=== PATIENT | male | born 1995 | race Caucasian/White ===

== ENCOUNTER 2017-02-13 15:48 | Inpatient (IN) | payer OTHER ==
[2017-02-13] MEDS ORDERED: ACETAMINOPHEN 500 MG TAB PO ONE (16:00)
[2017-02-13] MEDS ORDERED: ACETAMINOPHEN 500 MG TAB ONE (16:03)
[2017-02-13 16:09] LABS: COLOR YELLOW; LEUKOCYTE ESTERASE,URINE NEGATIVE (NEGATIVE); NITRITE,URINE NEGATIVE (NEGATIVE)
[2017-02-13 16:12] LABS: MUCUS 1+ /lpf (NONE-1+)
[2017-02-13] MEDS ORDERED: NS 2,100 ML IV ONE (16:12)
--- NOTE | 2017-02-13 16:12 | EDPHY ---
H & P Stated Complaint: fever,abd pain r bk pain diarrhea red chunky x 5 d, hx chrons Time Seen by Provider: 02/13/17 15:58 HPI/ROS: CHIEF COMPLAINT: Abdominal pain, fever, diarrhea HISTORY OF PRESENT ILLNESS: 21-year-old male with his multiyear history of diagnosed Crohn's disease on mercaptopurine, arrives via private vehicle complaining of 3 days of diffuse abdominal pain, nausea with no vomiting, diarrhea which is nonbloody non purulent, subjective fever. No myalgias.. Pain radiates to his right testicle into his right flank. Testicle itself is nontender and he has no urinary complaints. He denies history of abdominal or genital trauma. He has no local primary care provider or lead sprinkler. Moved here from [place] 1 year ago Last oral intake was at noon today consisting of 2 bites of a sandwich. PRIMARY CARE PROVIDER:none locally REVIEW OF SYSTEMS: A ten point review of systems was performed and is negative with the exception of the items mentioned in the HPI PAST MEDICAL & SURGICAL HISTORY: Crohn's disease, no history of abdominal surgeries, on mercaptopurine. SOCIAL HISTORY:nonsmoker no drug use. Moved here 1 year ago. PHYSICAL EXAM (Prior to examination, patient consented to physical exam, hands were washed and my usual and customary physical exam procedures followed) 1) GENERAL: Well-developed, well-nourished, alert and oriented. Appears nontoxic answering questions appropriately . 2) HEAD: Normocephalic, atraumatic 3) HEENT: Pupils equal, round, reactive to light bilaterally. Sclera anicteric. Nasopharynx, oropharynx, clear, no lesions. Dry mucous membranes 4) NECK: Full range of motion, no meningeal signs. 5) LUNGS: Clear auscultation bilaterally, no wheezes, no rhonchi, no retractions. 6) HEART: Regular rate and rhythm, no murmur, no heave, no gallop. 7) ABDOMEN: flat, tender to palpation all quadrants. No guarding, no rebound, no focal tenderness, negative McBurney's, negative Vivar's, negative Rovsing's , negative peritoneal sign, 8) MUSCULOSKELETAL: Moving all extremities, no focal areas of tenderness, no obvious trauma. No peripheral edema or discoloration. 9) BACK: No CVA tenderness, no midline vertebral tenderness, no fluctuance, no step-off, no obvious trauma, no visual or palpable abnormality. 10) SKIN: No rash, no petechiae. 11) : Normal male external genitalia, bilateral testicles are nontender with positive cremasteric reflex bilaterally, no high-riding testicle. . DIFFERENTIAL DIAGNOSIS: My differential diagnosis includes, but is not limited to, acute appendicitis, acute cholecystitis, bowel obstruction, acute pancreatitis, [testicular torsion, intra-abdominal abscess, gastritis and urinary tract infection. The patient understands that this diagnosis is provisional and can never be 100% accurate. This is a partial list of diagnoses considered. These considerations are based on history, physical exam, past history and reassessment. - Personal History Current Tetanus/Diphtheria Vaccine: Unsure Current Tetanus Diphtheria and Acellular Pertussis (TDAP): Unsure - Medical/Surgical History Hx Asthma: No Hx Chronic Respiratory Disease: No Hx Diabetes: No Hx Cardiac Disease: No Hx Renal Disease: No Hx Cirrhosis: No Hx Alcoholism: No Hx HIV/AIDS: No Hx Splenectomy or Spleen Trauma: No Other PMH: chrons - Social History Smoking Status: Never smoked Constitutional: Initial Vital Signs Temperature (C) 38.8 C H 02/13/17 15:51 Heart Rate 111 H 02/13/17 15:51 Respiratory Rate 16 02/13/17 15:51 Blood Pressure 138/67 H 02/13/17 15:51 O2 Sat (%) 98 02/13/17 15:51 O2 Delivery Mode Room Air Allergies/Adverse Reactions: No Known Allergies Allergy (Unverified 02/13/17 15:54) Home Medications: Medication Instructions Recorded Unobtainable 02/13/17 Medical Decision Making - Diagnostics Imaging Results: Imaging Impressions Abdomen CT 02/13/17 16:16 Impression: Possible ruptured appendicitis causing right ureteral obstruction vs appendix Crohn's disease. Results called and discussed with Cooper Navarro at 02/13/2017 17:02 General information for patients regarding this examination can be found at [email or web address]. If you have questions or comments about this report, please contact me at [phone] (hospital) or [phone] (cell). ED Course/Re-evaluation: I discussed this case with Dr. Zayas had received a phone call from [facility]. Plan will be laboratory studies, CT imaging. 5:10 p.m.: Discussed the imaging results showing a possible appendiceal perforation. Plan will be IV Invanz and surgical consultation 5:17 p.m.: Phone consultation with Dr. Marques Ruiz who will evaluate patient emergency - Data Points Laboratory Results: Laboratory Results 02/13/17 16:10 02/13/17 16:10 02/13/17 02/13/17 02/13/17 16:10 16:10 16:10 WBC RBC Hgb POC Hgb Hct POC Hct MCV MCH MCHC RDW Plt Count MPV Neut % (Auto) Lymph % (Auto) Upson % (Auto) Eos % (Auto) Baso % (Auto) Nucleat RBC Rel Count Absolute Neuts (auto) Absolute Lymphs (auto) Absolute Monos (auto) Absolute Eos (auto) Absolute Basos (auto) Absolute Nucleated RBC Immature Gran % Immature Gran # PT 15.3 SEC H SEC (12.0-15.0) INR 1.21 H (0.83-1.16) APTT 29.7 SEC SEC (23.0-38.0) VBG Lactic Acid 1.0 mmol/L mmol/L (0.7-2.1) POC Sodium Sodium 136 mEq/L mEq/L (134-144) POC Potassium Potassium 4.1 mEq/L mEq/L (3.5-5.2) POC Chloride Chloride 96 mEq/L L mEq/L (97-110) Carbon Dioxide 21 mEq/l L mEq/l (22-31) Anion Gap 19 mEq/L H mEq/L (8-16) POC BUN BUN 18 mg/dL mg/dL (7-23) Creatinine 0.9 mg/dL mg/dL (0.7-1.3) POC Creatinine Estimated GFR > 60 Glucose 92 mg/dL mg/dL (70-100) POC Glucose Calcium 10.0 mg/dL mg/dL (8.5-10.4) Total Bilirubin 1.7 mg/dL H mg/dL (0.1-1.4) Conjugated Bilirubin 0.4 mg/dL mg/dL (0.0-0.5) Unconjugated Bilirubin 1.3 mg/dL H mg/dL (0.0-1.1) AST 23 IU/L IU/L (17-59) ALT 22 IU/L IU/L (21-72) Alkaline Phosphatase 95 IU/L IU/L (38-126) Total Protein 8.2 g/dL g/dL (6.3-8.2) Albumin 4.7 g/dL g/dL (3.5-5.0) Lipase 53.0 IU/L IU/L (23-300) Urine Color Urine Appearance Urine pH Ur Specific Pineola Urine Protein Urine Ketones Urine Blood Urine Nitrate Urine Bilirubin Urine Urobilinogen Ur Leukocyte Esterase Urine RBC Urine WBC Ur Epithelial Cells Urine Mucus Urine Glucose 02/13/17 02/13/17 02/13/17 16:10 16:09 16:00 WBC 9.36 10^3/uL 10^3/uL (3.80-9.50) RBC 4.83 10^6/uL 10^6/uL (4.40-6.38) Hgb 15.1 g/dL g/dL (13.7-17.5) POC Hgb 15.0 gm/dL gm/dL (13.7-17.5) Hct 43.2 % % (40.0-51.0) POC Hct 44 % % (40-51) MCV 89.4 fL fL (81.5-99.8) MCH 31.3 pg pg (27.9-34.1) MCHC 35.0 g/dL g/dL (32.4-36.7) RDW 11.6 % % (11.5-15.2) Plt Count 275 10^3/uL 10^3/uL (150-400) MPV 9.4 fL fL (8.7-11.7) Neut % (Auto) 93.4 % H % (39.3-74.2) Lymph % (Auto) 1.4 % L % (15.0-45.0) Upson % (Auto) 4.7 % % (4.5-13.0) Eos % (Auto) 0.1 % L % (0.6-7.6) Baso % (Auto) 0.2 % L % (0.3-1.7) Nucleat RBC Rel Count 0.0 % % (0.0-0.2) Absolute Neuts (auto) 8.74 10^3/uL H 10^3/uL (1.70-6.50) Absolute Lymphs (auto) 0.13 10^3/uL L 10^3/uL (1.00-3.00) Absolute Monos (auto) 0.44 10^3/uL 10^3/uL (0.30-0.80) Absolute Eos (auto) 0.01 10^3/uL L 10^3/uL (0.03-0.40) Absolute Basos (auto) 0.02 10^3/uL 10^3/uL (0.02-0.10) Absolute Nucleated RBC 0.00 10^3/uL 10^3/uL (0-0.01) Immature Gran % 0.2 % % (0.0-1.1) Immature Gran # 0.02 10^3/uL 10^3/uL (0.00-0.10) PT INR APTT VBG Lactic Acid POC Sodium 135 mEq/L mEq/L (134-144) Sodium POC Potassium 3.8 mEq/L mEq/L (3.3-5.0) Potassium POC Chloride 97 mEq/L mEq/L (97-110) Chloride Carbon Dioxide Anion Gap POC BUN 18 mg/dL mg/dL (7-23) BUN Creatinine POC Creatinine 0.9 mg/dL mg/dL (0.7-1.3) Estimated GFR Glucose POC Glucose 93 mg/dL mg/dL (70-100) Calcium Total Bilirubin Conjugated Bilirubin Unconjugated Bilirubin AST ALT Alkaline Phosphatase Total Protein Albumin Lipase Urine Color YELLOW Urine Appearance HAZY Urine pH 5.0 (5.0-7.5) Ur Specific [place] 1.030 (1.002-1.030) Urine Protein 2+ H (NEGATIVE) Urine Ketones NEGATIVE (NEGATIVE) Urine Blood NEGATIVE (NEGATIVE) Urine Nitrate NEGATIVE (NEGATIVE) Urine Bilirubin NEGATIVE (NEGATIVE) Urine Urobilinogen NEGATIVE EU EU (0.2-1.0) Ur Leukocyte Esterase NEGATIVE (NEGATIVE) Urine RBC 1-3 /hpf /hpf (0-3) Urine WBC 1-3 /hpf /hpf (0-3) Ur Epithelial Cells NONE SEEN /lpf /lpf (NONE-1+) Urine Mucus 1+ /lpf /lpf (NONE-1+) Urine Glucose NEGATIVE (NEGATIVE) Medications Given: Discontinued Medications Acetaminophen (Tylenol) 1,000 mg PO EDNOW ONE Stop: 02/13/17 16:01 Last Admin: 02/13/17 16:00 Dose: 1,000 mg Sodium Chloride (Ns) 2,100 mls @ 4,200 mls/hr 30 ml/kg infuse over 30 min ( 2100 ml) IV EDNOW ONE PRN Reason: Protocol Stop: 02/13/17 16:41 Last Admin: 02/13/17 16:12 Dose: 2,100 mls Ertapenem 1 gm/ Sodium (Chloride) 100 mls @ 200 mls/hr IV EDNOW ONE PRN Reason: Protocol Stop: 02/13/17 17:46 Last Admin: 02/13/17 17:50 Dose: 100 mls Point of Care Test Results: 02/13/17 16:09 POC Sodium 135 POC Potassium 3.8 POC Chloride 97 POC BUN 18 POC Creatinine 0.9 POC Glucose 93 Departure - Departure Disposition: [facility] Inpatient Acute Clinical Impression: Perforated appendicitis Abdominal pain Qualifiers: Abdominal location: right lower quadrant Qualified Code(s): R10.31 - Right lower quadrant pain Condition: Fair
[2017-02-13 16:19] LABS: % IMMATURE GRANULYOCYTES 0.2 % (0.0-1.1); ABSOLUTE IMMATURE GRANULOCYTES 0.02 10^3/uL (0.00-0.10); ADD DIFF? NO; ADD MORPH? NO; ADD SCAN? NO; ATYPICAL LYMPHOCYTE FLAG 0 (0-99); FRAGMENT RBC FLAG 0 (0-99); HEMATOCRIT 43.2 % (40.0-51.0); HEMOGLOBIN 15.1 g/dL (13.7-17.5); LEFT SHIFT FLG 60 (0-99); LIPEMIA HEMOLYSIS FLAG 90 (0-99); MEAN CELL HEMOGLOBIN 31.3 pg (27.9-34.1); MEAN CELL VOLUME 89.4 fL (81.5-99.8); MEAN PLATELET VOLUME 9.4 fL (8.7-11.7); PLATELET CLUMPS FLAG 0 (0-99); PLATELET COUNT 275 10^3/uL (150-400); RED BLOOD CELL COUNT 4.83 10^6/uL (4.40-6.38); RED CELL DISTRIBUTION WIDTH 11.6 % (11.5-15.2)
[2017-02-13 16:30] LABS: INR 1.21 (0.83-1.16); PROTIME(PATIENT) 15.3 SEC (12.0-15.0)
[2017-02-13 16:31] LABS: APTT 29.7 SEC (23.0-38.0)
[2017-02-13 16:35] LABS: ALANINE AMINOTRANSFERASE 22 IU/L (21-72); ALBUMIN 4.7 g/dL (3.5-5.0); ALKALINE PHOSPHATASE 95 IU/L (38-126); ANION GAP 19 mEq/L (8-16); ASPARTATE AMINOTRANSFERASE 23 IU/L (17-59); BILIRUBIN,TOTAL 1.7 mg/dL (0.1-1.4); BILIRUBIN-CONJUGATED 0.4 mg/dL (0.0-0.5); BILIRUBIN-UNCONJUGATED 1.3 mg/dL (0.0-1.1); CARBON DIOXIDE 21 mEq/l (22-31); CHLORIDE 96 mEq/L (97-110); CREATININE 0.9 mg/dL (0.7-1.3); GLOMERULAR FILTRATION RATE > 60; GLUCOSE 92 mg/dL (70-100); POTASSIUM 4.1 mEq/L (3.5-5.2); SODIUM 136 mEq/L (134-144); TOTAL PROTEIN 8.2 g/dL (6.3-8.2)
[2017-02-13] MEDS ORDERED: IOPAMIDOL (ISOVUE-300) 100 ML BTL ONE (16:35)
[2017-02-13] MEDS ORDERED: ERTAPENEM 1 GM in NS 100 ML IV ONE (17:17)
[2017-02-13] MEDS ORDERED: NS 1,000 ML IV ONE (18:46)
[2017-02-13] MEDS ORDERED: HEPARIN 5,000 UNIT/0.5 ML SYR ONE (19:16)
[2017-02-13] MEDS ORDERED: ceFAZolin 1 GM/5 ML SYR ONE (19:17)
[2017-02-13] MEDS ORDERED: MIDAZOLAM 2 MG/2 ML VIAL ONE (19:34)
[2017-02-13] MEDS ORDERED: fentaNYL 100 MCG/2 ML INJ ONE ×4 (19:37→22:57)
[2017-02-13] MEDS ORDERED: PROPOFOL 200 MG/20 ML VIAL ONE (19:37)
[2017-02-13] MEDS ORDERED: DEXAMETHASONE 4 MG/ML VIAL ONE ×2 (19:39)
[2017-02-13] MEDS ORDERED: ROCURONIUM 50 MG/5 ML VIAL ONE ×2 (19:39→20:46)
[2017-02-13] MEDS ORDERED: LIDOCAINE 2% 5 ML SDV ONE (19:39)
[2017-02-13] MEDS ORDERED: ONDANSETRON 4 MG/2 ML VIAL ONE (19:39)
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
[2017-02-13] MEDS ORDERED: KETOROLAC 30 MG/1 ML SDV ONE (20:12)
[2017-02-13] MEDS ORDERED: KETAMINE 100 MG/10 ML SYR ONE (20:57)
[2017-02-13] MEDS ORDERED: SUGAMMADEX SODIUM 200 MG/2 ML VIAL IVP ONE (22:09)
[2017-02-13] MEDS ORDERED: HYDROmorphONE/DILAUDID 1 MG/ML SYR ONE (22:57)
--- NOTE | 2017-02-13 23:19 | POSTOPPROG ---
Post Op Note Date of Operation: 02/13/17 Surgeon: Marques Ruiz Anesthesia: GET(General Endotracheal) Pre-op Diagnosis: Acute abdomen,probable appendicitis, Crohn's disease, R hydronephrosis/uret Post-op Diagnosis: Ruptured appendicitis, generalized peritonitis, mesenteric adenitis Indication: Acute abdomen Procedure: lap/open appendectomy Findings: Ruptured appendicitis, generalized peritonitis, mesenteric adenitis Inf/Abcess present in the surg proc area at time of surgery?: Yes Depth: Organ Space EBL: Minimal Total fluids administered: 1800 Complications: none Drains: Vincent Cotton (placed in pelvis)
[2017-02-13] MEDS ORDERED: ONDANSETRON 4 MG/2 ML VIAL IVP PRN (23:30)
[2017-02-13] MEDS ORDERED: HYDROmorphONE/DILAUDID 1 MG/ML SYR IVP PRN (23:30)
[2017-02-14] MEDS: LR 1,000 ML IV SCH ×2 (00:14→17:58)
[2017-02-14] MEDS: KETOROLAC 30 MG/1 ML SDV IVP SCH ×4 (00:14→18:48)
[2017-02-14] MEDS: ACETAMINOPHEN 500 MG TAB PO SCH ×3 (05:18→22:15)
[2017-02-14 05:27] LABS: ALANINE AMINOTRANSFERASE 23 IU/L (21-72); ALBUMIN 3.2 g/dL (3.5-5.0); ALKALINE PHOSPHATASE 67 IU/L (38-126); ANION GAP 12 mEq/L (8-16); ASPARTATE AMINOTRANSFERASE 19 IU/L (17-59); BILIRUBIN,TOTAL 1.1 mg/dL (0.1-1.4); CALCIUM 8.8 mg/dL (8.5-10.4); CARBON DIOXIDE 23 mEq/l (22-31); CHLORIDE 103 mEq/L (97-110); CREATININE 0.7 mg/dL (0.7-1.3); GLOMERULAR FILTRATION RATE > 60; GLUCOSE 139 mg/dL (70-100); POTASSIUM 5.2 mEq/L (3.5-5.2); SODIUM 138 mEq/L (134-144); TOTAL PROTEIN 5.8 g/dL (6.3-8.2)
[2017-02-14 05:32] LABS: % IMMATURE GRANULYOCYTES 0.6 % (0.0-1.1); ABSOLUTE IMMATURE GRANULOCYTES 0.09 10^3/uL (0.00-0.10); ADD DIFF? NO; ADD MORPH? NO; ADD SCAN? YES; ATYPICAL LYMPHOCYTE FLAG 0 (0-99); FRAGMENT RBC FLAG 0 (0-99); HEMATOCRIT 38.5 % (40.0-51.0); HEMOGLOBIN 13.4 g/dL (13.7-17.5); LIPEMIA HEMOLYSIS FLAG 90 (0-99); MEAN CELL HEMOGLOBIN 31.6 pg (27.9-34.1); MEAN CELL HEMOGLOBIN CONCENTR. 34.8 g/dL (32.4-36.7); MEAN CELL VOLUME 90.8 fL (81.5-99.8); MEAN PLATELET VOLUME 10.1 fL (8.7-11.7); PLATELET CLUMPS FLAG 10 (0-99); PLATELET COUNT 222 10^3/uL (150-400); RED BLOOD CELL COUNT 4.24 10^6/uL (4.40-6.38); RED CELL DISTRIBUTION WIDTH 11.9 % (11.5-15.2)
[2017-02-14 05:44] LABS: LEFT SHIFT FLG 290 (0-99)
--- NOTE | 2017-02-14 06:00 | GOP ---
[f rep st] OPERATIVE REPORT DATE OF OPERATION: SURGEON: Marques Ruiz MD PREOPERATIVE DIAGNOSIS: Acute abdomen probable appendicitis, Crohn's disease, right hydronephrosis and right hydroureter. POSTOPERATIVE DIAGNOSIS: Ruptured appendicitis, generalized peritonitis, mesenteric adenitis, scarring at right pelvis presumably accounting for right hydronephrosis and hydroureter. PROCEDURE PERFORMED: Laparoscopic/open appendectomy. FINDINGS: Ruptured appendicitis, generalized peritonitis, extensive scarring and mesenteric adenitis. ESTIMATED BLOOD LOSS: Minimal INDICATIONS: Acute abdomen. DESCRIPTION OF PROCEDURE: Patient was placed on the operating table in supine position. After induction of adequate general endotracheal anesthesia, he was prepped and draped. A surgical time-out was carried out and agreed to by all members of the operative team. He was first approach laparoscopically. A curvilinear incision was made at the umbilicus. Transverse incision was made in the suprapubic area. An oblique incision is made in the left lower quadrant. Dissection was continued down to the anterior rectus sheath. Allis clamps were used to elevate the fascia and it was divided in the midline. Pursestring #0 PDS was placed in the fascia. The Yariel trocar was positioned. The left lower quadrant 5 mm port was placed under direct vision. A 5 mm suprapubic port was placed under direct vision. There were extensive adhesions in the right pelvis. The right colon was mobilized along the white line of Toldt laterally. There was a dense adhesion at the level of the pelvic brim. Small intestine did not have fat wrapping to it. The cecum and the terminal ileum and appendix were draped into the pelvis and densely adherent to the posterior pelvis. It became rapidly obviously it was not going to be safe to perform this procedure laparoscopically because of the dense adhesions. Surgery was converted to open procedure. A Bookwalter and major tray were brought to the scrub table. Laparoscopic instrumentation was removed. A vertical midline incision was made suprapubic to the umbilicus. An extension of the incision to the low hypogastrium was necessary to improve access.. I was able to mobilize the small bowel and slowly, using a Kittner and finger fracture technique, finally separate the appendix from the terminal ileum. The appendix is elevated. The cecum was transected with a linear stapler. The meso appendix was attenuated and divided with the harmonic scalpel. The specimen (appendix and cecal base) was removed. Thick intense scarring is consistent with a process that had been on going for a longer period than 48 hours. Small bowel was carefully inspected throughout its length. I inspected the terminal ilium where the appendix had been directly applied to it. There appears to be no evidence of bowel injury. During the course of the procedure, care was taken to avoid injury to the ureter. A LORNA drain was placed through the left lower quadrant incision into the left pelvis. Note was made on initial laparoscopic entry, a sample of the purulent fluid had been obtained and sent for culture and sensitivity. At this point, 4 L of saline was used to irrigate the abdomen. The midline incision was closed with a running suture of #0 PDS. The subcutaneous tissue, which was minimal, was irrigated. The skin was closed with desmond. The LORNA drain had been secured to the skin level with a 2-0 silk suture. A composite dressing was placed on the midline incision. Two 4x4s were carefully pulled with one below and one over the LORNA drain. A large piece of tape was placed over it. Note is made of Valerio catheter had been passed at the beginning of the surgery. It was left in place. The patient was returned to recovery in stable and satisfactory condition. INFECTION: There was a deep organ space infection with purulent peritonitis. FLUIDS: 1800 cc. COMPLICATIONS: None. DRAINS: Vincent-Cotton drain. /[id number]/MODL MTDD
[2017-02-14 06:21] LABS: SCAN NEGATIVE
--- NOTE | 2017-02-14 10:58 | SOAPPROG ---
SOAP Progress Note Assessment/Plan: 02/14/17 10:50 POD#1 Assessment: WBC up to 14k, LORNA drainage serous, C&S pending, Stool C&S negative, Bilirubin down, No flatus yet, Minimal bowel sounds,Poor effort on IS, OOB walking in [place] Improving. Plan: Will follow up on right hydronephrosis/hydroureter in the next few days. Since ureter not seen at surgery, will check LORNA drainage for Creatinine to prove non-injury Will not feed yet. Plan at least 14 days of antibiotics - awaiting C&S Will need to watch for metastatic infection in liver, recurrent peritoneal infection and wound infection. Subjective: I feel better Objective: Vital Signs Temp Pulse Resp BP Pulse Ox 36.2 C 52 L 16 116/64 96 02/14/17 10:12 02/14/17 10:12 02/14/17 10:12 02/14/17 10:12 02/14/17 10:12 Microbiology 02/13/17 20:22 Gram Stain - Final Appendix - Swab 02/13/17 18:41 Gastrointestinal Tract Panel (PCR) - Final Stool No Organism Detected Laboratory Results 02/14/17 04:15 02/14/17 04:15 02/13/17 02/14/17 02/15/17 05:59 05:59 05:59 Intake Total 4400 Output Total 600 Balance 3800 PT 15.3 SEC (12.0-15.0) H 02/13/17 16:10 INR 1.21 (0.83-1.16) H 02/13/17 16:10 - Time Spent With Patient Time Spent With Patient: 25 minutes Physical Exam - Physical Exam General Appearance: WD/WN, alert, mild distress Neck: non-tender, full range of motion, supple, normal inspection Respiratory: chest non-tender, lungs clear, other (poor respiratory excursion, IS only to 1000cc) Cardiac/Chest: regular rate, rhythm Abdomen: soft, other (hypoactive/minimal BS) Male Genitalia: deferred Rectal: deferred Skin: normal color, warm/dry Lymphatic: no adenopathy Extremities: normal range of motion, non-tender Neuro/Psych: no motor/sensory deficits, alert, normal mood/affect, oriented x 3 ICD10 Worksheet Patient Problems: Problems Problem Status Onset Abdominal pain Acute Perforated appendicitis Acute
[2017-02-14] MEDS: ERTAPENEM 1 GM in NS 100 ML IV SCH (18:16)
[2017-02-14] MEDS: ENOXAPARIN 30 MG/0.3 ML SYR SC SCH (22:16)
[2017-02-15] MEDS: KETOROLAC 30 MG/1 ML SDV IVP SCH ×4 (00:02→18:14)
[2017-02-15] MEDS: LR 1,000 ML IV SCH ×2 (04:54→17:18)
[2017-02-15] MEDS: ACETAMINOPHEN 500 MG TAB PO SCH ×3 (04:58→21:04)
[2017-02-15] MEDS: ENOXAPARIN 30 MG/0.3 ML SYR SC SCH ×2 (09:19→21:05)
[2017-02-15] MEDS: ERTAPENEM 1 GM in NS 100 ML IV SCH (09:22)
[2017-02-15 09:55] LABS: HEMATOCRIT 38.8 % (40.0-51.0); HEMOGLOBIN 13.4 g/dL (13.7-17.5); MEAN CELL HEMOGLOBIN 31.7 pg (27.9-34.1); MEAN CELL HEMOGLOBIN CONCENTR. 34.5 g/dL (32.4-36.7); MEAN CELL VOLUME 91.7 fL (81.5-99.8); RED BLOOD CELL COUNT 4.23 10^6/uL (4.40-6.38); RED CELL DISTRIBUTION WIDTH 12.2 % (11.5-15.2)
--- NOTE | 2017-02-15 16:27 | SOAPPROG ---
SOAP Progress Note Assessment/Plan: Assessment/Plan: - Looking and feeling better today. - Abdomen is appropriately tender, he has some bowel sounds and has had some BMs this AM as well. Will start with clears and ADAT if does well - Continue broad spectrum abx for the time being, final cx pending - Voiding, UOP marginal. Will hopefully filler picker once he has more PO intake, bolus if continues to be low - LORNA 120cc, serosang. Cont. If increases and UOP remains low will check LORNA CR to r/o ureteral injury 02/15/17 16:25 02/15/17 16:26 Objective: Vital Signs Temp Pulse Resp BP Pulse Ox 36.7 C 46 L 14 106/64 96 02/15/17 12:00 02/15/17 12:00 02/15/17 12:00 02/15/17 12:00 02/15/17 12:00 Microbiology 02/13/17 20:22 Gram Stain - Final Appendix - Swab Laboratory Results 02/15/17 09:42 02/14/17 04:15 02/14/17 02/15/17 02/16/17 05:59 05:59 05:59 Intake Total 4400 2844 472 Output Total 600 1170 300 Balance 3800 1674 172 PT 15.3 SEC (12.0-15.0) H 02/13/17 16:10 INR 1.21 (0.83-1.16) H 02/13/17 16:10 ICD10 Worksheet Patient Problems: Problems Problem Status Onset Abdominal pain Acute Perforated appendicitis Acute
[2017-02-16] MEDS: KETOROLAC 30 MG/1 ML SDV IVP SCH ×5 (00:04→23:31)
[2017-02-16] MEDS: ACETAMINOPHEN 500 MG TAB PO SCH ×3 (05:21→22:03)
[2017-02-16] MEDS: LR 1,000 ML IV SCH ×2 (06:32→22:04)
[2017-02-16] MEDS: ERTAPENEM 1 GM in NS 100 ML IV SCH (08:07)
[2017-02-16] MEDS: ENOXAPARIN 30 MG/0.3 ML SYR SC SCH ×2 (08:10→22:03)
--- NOTE | 2017-02-16 10:10 | SOAPPROG ---
SOAP Progress Note Assessment/Plan: 02/14/17 10:50 POD#1 Assessment: WBC up to 14k, LORNA drainage serous, C&S pending, Stool C&S negative, Bilirubin down, No flatus yet, Minimal bowel sounds,Poor effort on IS, OOB walking in [place] Improving. Plan: Will follow up on right hydronephrosis/hydroureter in the next few days. Since ureter not seen at surgery, will check LORNA drainage for Creatinine to prove non-injury Will not feed yet. Plan at least 14 days of antibiotics - awaiting C&S Will need to watch for metastatic infection in liver, recurrent peritoneal infection and wound infection. 02/16/17 10:06 POD#2 Assessment: Patient feeling better: moving bowels (diarrhea), tolerating po. He had a temp spike this AM, CBC pending LORNA - 130cc/ 24 hours slightly turbid this AM Path pending Plan: CBC Subjective: feeling better- no complaints Objective: Vital Signs Temp Pulse Resp BP Pulse Ox 37.1 C 70 22 H 112/63 94 02/16/17 07:28 02/16/17 07:28 02/16/17 07:28 02/16/17 07:28 02/16/17 07:28 Microbiology 02/13/17 20:22 Gram Stain - Final Appendix - Swab Laboratory Results 02/15/17 09:42 02/14/17 04:15 02/15/17 02/16/17 02/17/17 05:59 05:59 05:59 Intake Total 2844 2780 Output Total 1170 880 700 Balance 1674 1900 -700 PT 15.3 SEC (12.0-15.0) H 02/13/17 16:10 INR 1.21 (0.83-1.16) H 02/13/17 16:10 - Time Spent With Patient Time Spent With Patient: 25 Physical Exam - Physical Exam General Appearance: WD/WN, alert, no apparent distress Neck: non-tender, full range of motion, supple Respiratory: chest non-tender, lungs clear, normal breath sounds Cardiac/Chest: regular rate, rhythm Abdomen: normal bowel sounds, non-tender, soft, other (no signs of wound infection) Male Genitalia: deferred Rectal: deferred Back: Normal inspection Skin: normal color, warm/dry Extremities: normal range of motion Neuro/Psych: no motor/sensory deficits, alert, normal mood/affect, oriented x 3 ICD10 Worksheet Patient Problems: Problems Problem Status Onset Abdominal pain Acute Perforated appendicitis Acute
[2017-02-16 10:41] LABS: % IMMATURE GRANULYOCYTES 0.7 % (0.0-1.1); ABSOLUTE IMMATURE GRANULOCYTES 0.08 10^3/uL (0.00-0.10); ADD DIFF? NO; ADD MORPH? NO; ADD SCAN? NO; ATYPICAL LYMPHOCYTE FLAG 10 (0-99); FRAGMENT RBC FLAG 0 (0-99); HEMOGLOBIN 13.3 g/dL (13.7-17.5); LEFT SHIFT FLG 10 (0-99); LIPEMIA HEMOLYSIS FLAG 90 (0-99); MEAN CELL HEMOGLOBIN 31.2 pg (27.9-34.1); MEAN CELL HEMOGLOBIN CONCENTR. 34.1 g/dL (32.4-36.7); MEAN CELL VOLUME 91.5 fL (81.5-99.8); MEAN PLATELET VOLUME 9.6 fL (8.7-11.7); PLATELET CLUMPS FLAG 0 (0-99); PLATELET COUNT 231 10^3/uL (150-400); RED BLOOD CELL COUNT 4.26 10^6/uL (4.40-6.38); RED CELL DISTRIBUTION WIDTH 12.1 % (11.5-15.2)
[2017-02-17] MEDS: KETOROLAC 30 MG/1 ML SDV IVP SCH ×3 (05:09→18:13)
[2017-02-17] MEDS: ACETAMINOPHEN 500 MG TAB PO SCH ×3 (05:09→21:22)
[2017-02-17 05:48] LABS: % IMMATURE GRANULYOCYTES 0.8 % (0.0-1.1); ABSOLUTE IMMATURE GRANULOCYTES 0.08 10^3/uL (0.00-0.10); ADD DIFF? NO; ADD MORPH? NO; ADD SCAN? NO; ATYPICAL LYMPHOCYTE FLAG 0 (0-99); FRAGMENT RBC FLAG 0 (0-99); HEMATOCRIT 37.7 % (40.0-51.0); HEMOGLOBIN 12.9 g/dL (13.7-17.5); LEFT SHIFT FLG 20 (0-99); LIPEMIA HEMOLYSIS FLAG 90 (0-99); MEAN CELL HEMOGLOBIN 30.9 pg (27.9-34.1); MEAN CELL HEMOGLOBIN CONCENTR. 34.2 g/dL (32.4-36.7); MEAN CELL VOLUME 90.4 fL (81.5-99.8); MEAN PLATELET VOLUME 9.4 fL (8.7-11.7); PLATELET CLUMPS FLAG 0 (0-99); PLATELET COUNT 229 10^3/uL (150-400); RED BLOOD CELL COUNT 4.17 10^6/uL (4.40-6.38); RED CELL DISTRIBUTION WIDTH 12.2 % (11.5-15.2)
[2017-02-17 05:58] LABS: ALANINE AMINOTRANSFERASE 40 IU/L (21-72); ALBUMIN 2.9 g/dL (3.5-5.0); ALKALINE PHOSPHATASE 110 IU/L (38-126); ANION GAP 9 mEq/L (8-16); ASPARTATE AMINOTRANSFERASE 21 IU/L (17-59); BILIRUBIN,TOTAL 0.6 mg/dL (0.1-1.4); CALCIUM 8.8 mg/dL (8.5-10.4); CARBON DIOXIDE 24 mEq/l (22-31); CHLORIDE 102 mEq/L (97-110); CREATININE 0.8 mg/dL (0.7-1.3); GLOMERULAR FILTRATION RATE > 60; GLUCOSE 87 mg/dL (70-100); POTASSIUM 4.2 mEq/L (3.5-5.2); SODIUM 135 mEq/L (134-144); TOTAL PROTEIN 5.4 g/dL (6.3-8.2)
--- NOTE | 2017-02-17 09:36 | SOAPPROG ---
SOAP Progress Note Assessment/Plan: 02/14/17 10:50 POD#1 Assessment: WBC up to 14k, LORNA drainage serous, C&S pending, Stool C&S negative, Bilirubin down, No flatus yet, Minimal bowel sounds,Poor effort on IS, OOB walking in [place] Improving. Plan: Will follow up on right hydronephrosis/hydroureter in the next few days. Since ureter not seen at surgery, will check LORNA drainage for Creatinine to prove non-injury Will not feed yet. Plan at least 14 days of antibiotics - awaiting C&S Will need to watch for metastatic infection in liver, recurrent peritoneal infection and wound infection. 02/16/17 10:06 POD#2 Assessment: Patient feeling better: moving bowels (diarrhea), tolerating po. He had a temp spike this AM, CBC pending LORNA - 130cc/ 24 hours slightly turbid this AM Path pending Plan: CBC POD#3 02/17/17 09:30 Assessment: Feeling better. Again had temp last PM. WBC and platelets both decreasing. Growing anaerobe form peritoneal fluid. LORNA serous and decreasing LFT's ok. I am still concern about a recurrent intra-abdominal or metastatic infection. Will re-eval right sided hydronephrosis/Hydroureter tomorrow Plan: Continue supportive care. Follow labs and exam. Sono of ureter/kidney in AM (If needs F/U CT, that will answer the question as well.) Subjective: "I'm feeling well during the day Objective: Vital Signs Temp Pulse Resp BP Pulse Ox 36.8 C 63 16 117/75 95 02/17/17 04:00 02/17/17 04:00 02/17/17 04:00 02/17/17 04:00 02/17/17 04:00 Microbiology 02/13/17 20:22 Gram Stain - Final Appendix - Swab Laboratory Results 02/17/17 05:25 02/17/17 05:25 02/16/17 02/17/17 02/18/17 05:59 05:59 05:59 Intake Total 2780 3863 Output Total 880 2520 Balance 1900 1343 PT 15.3 SEC (12.0-15.0) H 02/13/17 16:10 INR 1.21 (0.83-1.16) H 02/13/17 16:10 - Time Spent With Patient Time Spent With Patient: 15 Physical Exam - Physical Exam General Appearance: WD/WN, alert, no apparent distress Neck: non-tender, full range of motion, supple Respiratory: chest non-tender, lungs clear, normal breath sounds Cardiac/Chest: regular rate, rhythm Abdomen: normal bowel sounds, non-tender, soft, other (Incision clean and dry) Male Genitalia: deferred Rectal: deferred Back: Normal inspection Skin: normal color, warm/dry Extremities: normal range of motion, non-tender, normal inspection Neuro/Psych: no motor/sensory deficits, alert, normal mood/affect, oriented x 3 ICD10 Worksheet Patient Problems: Problems Problem Status Onset Abdominal pain Acute Perforated appendicitis Acute
[2017-02-17] MEDS: ERTAPENEM 1 GM in NS 100 ML IV SCH (10:08)
[2017-02-17] MEDS: ENOXAPARIN 30 MG/0.3 ML SYR SC SCH ×2 (10:08→21:22)
[2017-02-18] MEDS: KETOROLAC 30 MG/1 ML SDV IVP SCH ×4 (00:34→18:00)
[2017-02-18 05:01] LABS: % IMMATURE GRANULYOCYTES 0.9 % (0.0-1.1); ADD DIFF? NO; ADD MORPH? NO; ADD SCAN? NO; ATYPICAL LYMPHOCYTE FLAG 40 (0-99); FRAGMENT RBC FLAG 0 (0-99); HEMATOCRIT 39.5 % (40.0-51.0); HEMOGLOBIN 13.6 g/dL (13.7-17.5); LEFT SHIFT FLG 10 (0-99); LIPEMIA HEMOLYSIS FLAG 90 (0-99); MEAN CELL HEMOGLOBIN 30.9 pg (27.9-34.1); MEAN CELL HEMOGLOBIN CONCENTR. 34.4 g/dL (32.4-36.7); MEAN CELL VOLUME 89.8 fL (81.5-99.8); MEAN PLATELET VOLUME 9.6 fL (8.7-11.7); PLATELET CLUMPS FLAG 0 (0-99); PLATELET COUNT 268 10^3/uL (150-400); RED CELL DISTRIBUTION WIDTH 12.1 % (11.5-15.2)
[2017-02-18] MEDS: ACETAMINOPHEN 500 MG TAB PO SCH ×3 (05:21→21:30)
[2017-02-18] MEDS: ERTAPENEM 1 GM in NS 100 ML IV SCH (09:29)
[2017-02-18] MEDS: ENOXAPARIN 30 MG/0.3 ML SYR SC SCH ×2 (09:30→21:30)
--- NOTE | 2017-02-18 09:57 | SOAPPROG ---
SOAP Progress Note Assessment/Plan: 02/14/17 10:50 POD#1 Assessment: WBC up to 14k, LORNA drainage serous, C&S pending, Stool C&S negative, Bilirubin down, No flatus yet, Minimal bowel sounds,Poor effort on IS, OOB walking in [place] Improving. Plan: Will follow up on right hydronephrosis/hydroureter in the next few days. Since ureter not seen at surgery, will check LORNA drainage for Creatinine to prove non-injury Will not feed yet. Plan at least 14 days of antibiotics - awaiting C&S Will need to watch for metastatic infection in liver, recurrent peritoneal infection and wound infection. 02/16/17 10:06 POD#2 Assessment: Patient feeling better: moving bowels (diarrhea), tolerating po. He had a temp spike this AM, CBC pending LORNA - 130cc/ 24 hours slightly turbid this AM Path pending Plan: CBC POD#3 02/17/17 09:30 Assessment: Feeling better. Again had temp last PM. WBC and platelets both decreasing. Growing anaerobe form peritoneal fluid. LORNA serous and decreasing LFT's ok. I am still concern about a recurrent intra-abdominal or metastatic infection. Will re-eval right sided hydronephrosis/Hydroureter tomorrow Plan: Continue supportive care. Follow labs and exam. Sono of ureter/kidney in AM (If needs F/U CT, that will answer the question as well.) POD#4 02/18/17 09:54 Assessment: Had fever yesterday again. W/u with blood cultures done. Feels well today. LORNA drainage serous. Incision clean and dry without obvious infection. Path shows granulomatous changes in cecal portion possibly consistent with Crohn 's disease. Plan: Ultrasound of right kidney and collection system to see if it has resolved. May need IVP/CT Subjective: I'm feeling netter. Objective: Vital Signs Temp Pulse Resp BP Pulse Ox 36.4 C 64 14 112/60 96 02/18/17 07:52 02/18/17 07:52 02/18/17 07:52 02/18/17 07:52 02/18/17 07:52 Microbiology 02/13/17 20:22 Gram Stain - Final Appendix - Swab Laboratory Results 02/18/17 04:30 02/17/17 05:25 0602/18/17 02/19/17 05:59 05:59 05:59 Intake Total 3863 700 Output Total 2520 1770 Balance 1343 -1070 PT 15.3 SEC (12.0-15.0) H 02/13/17 16:10 INR 1.21 (0.83-1.16) H 02/13/17 16:10 - Time Spent With Patient Time Spent With Patient: 15 Physical Exam - Physical Exam General Appearance: WD/WN, alert, no apparent distress Neck: non-tender, full range of motion, supple, normal inspection Respiratory: chest non-tender, lungs clear, normal breath sounds Cardiac/Chest: regular rate, rhythm Abdomen: normal bowel sounds, non-tender, soft, other (incision without erythema /signs of infection. LORNA output decreasing and is serous) Male Genitalia: deferred Rectal: deferred Back: Normal inspection Skin: normal color, warm/dry Extremities: normal range of motion Neuro/Psych: no motor/sensory deficits, alert, normal mood/affect, oriented x 3 ICD10 Worksheet Patient Problems: Problems Problem Status Onset Abdominal pain Acute Perforated appendicitis Acute
[2017-02-19] MEDS: KETOROLAC 30 MG/1 ML SDV IVP SCH (00:12)
[2017-02-19 05:03] LABS: % IMMATURE GRANULYOCYTES 1.2 % (0.0-1.1); ABSOLUTE IMMATURE GRANULOCYTES 0.13 10^3/uL (0.00-0.10); ADD DIFF? NO; ADD MORPH? NO; ADD SCAN? NO; ATYPICAL LYMPHOCYTE FLAG 60 (0-99); FRAGMENT RBC FLAG 0 (0-99); HEMATOCRIT 39.2 % (40.0-51.0); HEMOGLOBIN 13.5 g/dL (13.7-17.5); LEFT SHIFT FLG 10 (0-99); LIPEMIA HEMOLYSIS FLAG 90 (0-99); MEAN CELL HEMOGLOBIN 30.9 pg (27.9-34.1); MEAN CELL HEMOGLOBIN CONCENTR. 34.4 g/dL (32.4-36.7); MEAN CELL VOLUME 89.7 fL (81.5-99.8); MEAN PLATELET VOLUME 9.3 fL (8.7-11.7); PLATELET CLUMPS FLAG 0 (0-99); PLATELET COUNT 313 10^3/uL (150-400); RED BLOOD CELL COUNT 4.37 10^6/uL (4.40-6.38); RED CELL DISTRIBUTION WIDTH 12.2 % (11.5-15.2)
[2017-02-19 05:29] LABS: ALANINE AMINOTRANSFERASE 38 IU/L (21-72); ALBUMIN 2.9 g/dL (3.5-5.0); ALKALINE PHOSPHATASE 166 IU/L (38-126); ANION GAP 11 mEq/L (8-16); ASPARTATE AMINOTRANSFERASE 19 IU/L (17-59); BILIRUBIN,TOTAL 0.5 mg/dL (0.1-1.4); CARBON DIOXIDE 22 mEq/l (22-31); CHLORIDE 105 mEq/L (97-110); CREATININE 0.8 mg/dL (0.7-1.3); GLOMERULAR FILTRATION RATE > 60; GLUCOSE 102 mg/dL (70-100); POTASSIUM 4.2 mEq/L (3.5-5.2); SODIUM 138 mEq/L (134-144); TOTAL PROTEIN 5.8 g/dL (6.3-8.2)
[2017-02-19] MEDS: ACETAMINOPHEN 500 MG TAB PO SCH ×3 (07:13→21:32)
[2017-02-19] MEDS: IBUPROFEN 200 MG TAB PO SCH ×5 (07:14→21:32)
--- NOTE | 2017-02-19 09:31 | SOAPPROG ---
SOAP Progress Note Assessment/Plan: Assessment/Plan: 21 Y M s/p lap to open perforated appendicitis, Crohn's. Seen and examined with Dr. Davison. D/w'ed Dr. Ruiz. Tmax 39.4. WBC's slightly up. Will get CT abd/pel r/o abscess. Jaycob drainage down, ~20cc. Possibly remove pending CT results. Many questions answered regarding post op expectations and limitations with patient and his mom. S: pain controlled with tylenol and toradol. no n/v. O: alert, nad no wob rrr abd soft, inc cdi, no erythema. drain serosanguinous ext no edema 02/19/17 09:28 Objective: Vital Signs Temp Pulse Resp BP Pulse Ox 36.6 C 53 L 12 122/67 H 96 02/19/17 07:34 02/19/17 07:34 02/19/17 07:34 02/19/17 07:34 02/19/17 07:34 Microbiology 02/13/17 20:22 Gram Stain - Final Appendix - Swab Laboratory Results 02/19/17 04:19 02/19/17 04:19 02/18/17 02/19/17 02/20/17 05:59 05:59 05:59 Intake Total 700 300 Output Total 1770 1270 Balance -1070 -970 PT 15.3 SEC (12.0-15.0) H 02/13/17 16:10 INR 1.21 (0.83-1.16) H 02/13/17 16:10 ICD10 Worksheet Patient Problems: Problems Problem Status Onset Abdominal pain Acute Perforated appendicitis Acute
[2017-02-19] MEDS ORDERED: IOPAMIDOL (ISOVUE-300) 100 ML BTL ONE (10:52)
[2017-02-19] MEDS: ERTAPENEM 1 GM in NS 100 ML IV SCH (12:55)
[2017-02-19] MEDS: ENOXAPARIN 30 MG/0.3 ML SYR SC SCH ×2 (12:57→21:32)
--- NOTE | 2017-02-19 20:30 | SOAPPROG ---
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 / EATING WELL / POSITIVE FLATUS/ WBC 56837 CT SCAN REVEALS A 3 X 2 PROBABLE PELVIC ABSCESS NOT COMMUNICATING WITH PRESENT THE PELVIC DRAIN ALSO NOT AMENABLE TO PERCUTANEOUS DRAINAGE Plan: ID CONSULT/ OBSERVATION WITH SURGERY IF CONDITION WORSENS / DEPENDING ON ID INPUT CONSIDER TREATMENT WITH IV ANTIBIOTICS AT THIS POINT 02/19/17 20:27 Objective: Vital Signs Temp Pulse Resp BP Pulse Ox 36.6 C 66 16 125/63 H 96 02/19/17 19:23 02/19/17 19:23 02/19/17 19:23 02/19/17 19:23 02/19/17 19:23 Microbiology 02/13/17 20:22 Gram Stain - Final Appendix - Swab Laboratory Results 02/19/17 04:19 02/19/17 04:19 02/18/17 02/19/17 02/20/17 05:59 05:59 05:59 Intake Total 109 257 7731 Output Total 1770 1270 2115 Balance -1070 -970 -765 PT 15.3 SEC (12.0-15.0) H 02/13/17 16:10 INR 1.21 (0.83-1.16) H 02/13/17 16:10 ICD10 Worksheet Patient Problems: Problems Problem Status Onset Abdominal pain Acute Perforated appendicitis Acute
[2017-02-20] MEDS: IBUPROFEN 200 MG TAB PO SCH ×4 (02:22→14:43)
[2017-02-20 04:59] LABS: % IMMATURE GRANULYOCYTES 1.2 % (0.0-1.1); ABSOLUTE IMMATURE GRANULOCYTES 0.11 10^3/uL (0.00-0.10); ADD DIFF? NO; ADD MORPH? NO; ADD SCAN? NO; ATYPICAL LYMPHOCYTE FLAG 80 (0-99); FRAGMENT RBC FLAG 0 (0-99); HEMATOCRIT 37.8 % (40.0-51.0); LEFT SHIFT FLG 20 (0-99); LIPEMIA HEMOLYSIS FLAG 90 (0-99); MEAN CELL HEMOGLOBIN 30.9 pg (27.9-34.1); MEAN CELL HEMOGLOBIN CONCENTR. 34.4 g/dL (32.4-36.7); MEAN CELL VOLUME 89.8 fL (81.5-99.8); MEAN PLATELET VOLUME 9.2 fL (8.7-11.7); PLATELET CLUMPS FLAG 20 (0-99); PLATELET COUNT 328 10^3/uL (150-400); RED BLOOD CELL COUNT 4.21 10^6/uL (4.40-6.38); RED CELL DISTRIBUTION WIDTH 12.5 % (11.5-15.2)
[2017-02-20] MEDS: ACETAMINOPHEN 500 MG TAB PO SCH ×2 (06:06→14:43)
[2017-02-20 07:29] VITALS: BP 126/64; PULSE 56; RESP 18; O2SAT 95
[2017-02-20] MEDS: ENOXAPARIN 30 MG/0.3 ML SYR SC SCH (09:44)
[2017-02-20] MEDS: ERTAPENEM 1 GM in NS 100 ML IV SCH (09:44)
[2017-02-20 11:43] VITALS: TEMP 98.1
--- NOTE | 2017-02-20 13:19 | SOAPPROG ---
SOAP Progress Note Assessment/Plan: Assessment/Plan: 21 Y M s/p lap to open perforated appendicitis, Crohn's. CT with small pelvic fluid collection, not amenable to drainage. Afebrile x >24 hr and WBCs now down. Discussed option of surgery versus antibiotic therapy. Appreciate ID's input. Plan will be for oral antibiotic therapy. Remove d/c drain. Patient will see ID Fri am before leaving on a family trip. F/u c Dr. Davison once back for exam and staple removal. Needs to see MD/go to ER if fevers, new abdominal pain, or malaise. S: pain controlled with tylenol and toradol. no n/v. O: alert, nad no wob rrr abd soft, inc cdi, no erythema. drain serosanguinous ext no edema 02/20/17 13:15 Objective: Vital Signs Temp Pulse Resp BP Pulse Ox 36.7 C 56 L 18 126/64 H 95 02/20/17 11:43 02/20/17 07:28 02/20/17 07:28 02/20/17 07:28 02/20/17 07:28 Microbiology 02/13/17 20:22 Gram Stain - Final Appendix - Swab Laboratory Results 02/20/17 04:18 02/19/17 04:19 02/19/17 02/20/17 02/21/17 05:59 05:59 05:59 Intake Total 300 1650 Output Total 1270 2115 Balance -970 -465 PT 15.3 SEC (12.0-15.0) H 02/13/17 16:10 INR 1.21 (0.83-1.16) H 02/13/17 16:10 ICD10 Worksheet Patient Problems: Problems Problem Status Onset Abdominal pain Acute Perforated appendicitis Acute
--- NOTE | 2017-02-20 15:20 | GDS ---
[f rep st] DISCHARGE SUMMARY DISCHARGE DIAGNOSES: 1. Acute ruptured appendicitis. 2. Generalized peritonitis. 3. Mesenteric adenitis. 4. Right hydronephrosis and hydroureter. 5. Crohn disease. PROCEDURES: Laparoscopic/open appendectomy. INTRAOPERATIVE FINDINGS: Patient was found to have ruptured appendicitis, with generalized peritoni tis and extensive scarring, and mesenteric adenitis. HOSPITAL COURSE: The patient is a 21-year-old male, who presented to the emergency department compl aining of 3 days of diffuse abdominal pain, nausea, and nonbloody, nonpurulent diarrhea. He has a h istory of Crohn disease with mercaptopurine. A CT scan showed possible ruptured appendicitis causin g right ureteral obstruction versus appendiceal Crohn disease. He was brought to the operating room by Dr. Ruiz, and underwent a laparoscopic to open appendectomy. He was found to have an extremel y inflamed appendix, that Dr. Ruiz said was quite remarkable. Ultimately, pathology showed append icitis with also microscopic findings of Crohn disease. The procedure was uncomplicated and he tole rated it well. The patient's postoperative course was complicated by some fevers and slight increase in his white b lood cell count. He was feeling well and eating well without nausea or vomiting. A CT scan was obt ained due to his fevers. This showed a small pelvic fluid collection. He was kept on Invanz during his hospital stay. Options were discussed, including surgery versus antibiotic therapy. Infectiou s Disease was consulted. At that time, he had been afebrile for over 24 hours, and his white count had dropped down to close to normal levels. Ultimately, the patient and the family opted for oral a ntibiotic therapy with outpatient followup. They assume the risk of a possible abscess and potentia l need for eventual surgery. DISCHARGE INSTRUCTIONS: Patient was discharged to home with his mom and dad in stable condition. H is Vincent-Cotton drain was removed before leaving. He was given prescriptions for Levaquin and Flag yl. An appointment was made for him to follow up with Dr. Laura Gray in infectious Disease in 2 da ys. He then plans to go on a family trip to [place], and will follow up with Dr. Davison after this for staple removal and general exam. They understand they need to seek medical attention and potentially go to the emergency department if he has new abdominal pain, fevers of 101 and greater o r general malaise. All discharge instructions were discussed prior to him going home at length. /[id number]/MODL
--- NOTE | 2017-02-20 18:30 | GCON ---
[f rep st] CONSULTATION INFECTIOUS DISEASE CONSULTATION DATE OF CONSULTATION: 02/20/2017 REASON FOR CONSULTATION: Fever and abdominal abscess. HISTORY OF PRESENT ILLNESS: This is a 21-year-old male with a past medical history of Crohn disease on mercaptopurine since age 13 who was in his usual state of health until 02/13/2017 when he developed back pain, diarrhea, and subsequently a fever. He presented to the emergency room late in the afternoon and also described pain radiating to his right testicle. CT scan was performed that showed ruptured appendicitis causing right ureteral obstruction, and surgical services were consulted. Patient was taken to the operating room later that evening where he was found to have a ruptured appendicitis, generalized peritonitis, and mesenteric adenitis. Patient was started on ertapenem at that time. Patient has done generally well throughout his hospitalization with the exception of intermittent fevers starting on 02/16/2017 , then 02/17, and subsequently between 02/18 and 02/19 overnight, he had a temp to 39.4. As a result, patient underwent repeat imaging of his abdomen which showed a 3 x 1.5 rim enhancing fluid collection in the right mid pelvis. Over this duration, patient also has had gradual improvement in leukocytosis with an initial white blood cell count of 14 and today 9.5. Surgical services is asking ID to comment on need for surgical drainage of 3 x 1 abscess. PAST MEDICAL HISTORY: 1. Crohn disease on mercaptopurine since childhood. 2. Gilbert disease. PAST SURGICAL HISTORY: None pertinent other than appendectomy as above on 02/13. SOCIAL HISTORY: The patient is originally from [place]. He moved to [place] about a year ago. Nonsmoker. No drug use. No alcohol. He was working construction here locally. He is currently not in school. His parents are at bedside. FAMILY HISTORY: Reviewed and noncontributory. REVIEW OF SYSTEMS: A complete 10-point review of systems was performed and is negative except as mentioned in the HPI. PHYSICAL EXAMINATION: VITAL SIGNS: Last T-max 02/19 was 39.4, T current 36.7, blood pressure 126/64, heart rate 56. GENERAL: This is a young male who is thin, nontoxic, no acute distress. HEENT: Pupils reactive bilaterally. Oropharynx: Good dentition. Moist mucous membranes. NECK: Supple. No lymphadenopathy. CARDIOVASCULAR: Bradycardic. Regular rate. No murmurs. CHEST: Clear to auscultation bilaterally. ABDOMEN: Soft, nontender. Midline surgical scar is without abnormality. He has a LORNA drain with serosanguineous fluid. His belly is soft throughout. EXTREMITIES: No clubbing, cyanosis, edema, splinter hemorrhages, or Janeway lesions. NEUROLOGIC: He is alert and oriented x4. Moving all 4 extremities equally. LABORATORY: White count 9.5, hematocrit 37, platelets of 328. Creatinine 0.8. AST 19, ALT 38, alkaline phosphatase 166, albumin 2.6. C diff PCR was negative 02/18/2017. Blood cultures from 02/13, 02/16, and 02/17 are no growth to date. Intraabdominal cultures grew Streptococcus constellatus and Prevotella. Gram stain showed 2+ GPCs and rare gram-negative rods. IMAGING: As per HPI. ASSESSMENT AND PLAN: This is a 21-year-old male with persistent fever following ruptured appendicitis with associated peritonitis with no abdominal pain or other changes in hemodynamics. Further he has had a gradually improving leukocytosis but slightly slower than might be expected. Patient identified to have a small fluid collection, 3 x 1.5 x 2, in the right mid pelvis that is not accessible by IR. Unclear significance of this small fluid collection. It is an indeterminate size which could potentially be managed medically. Discussed risks and benefits of surgical management versus medical management with serial imaging with patient and his parents at bedside. In addition, after extensive discussion, showing them the imaging as well as laboratory results over time, personally patient elected for medical management. Would recommend levofloxacin 750mg and metronidazole 500 mg 3 times daily, prescribe 14 day course. Reviewed the risks and benefits of these antibiotic therapies including the risks but not limited to tendinopathy, C diff, sun sensitivity, interaction with calcium, Antabuse reaction with metronidazole, abdominal upset , and diarrhea. Time was 75 minutes, greater than 50% time spent with education and counseling regarding the above risks. Patient is to follow up in my clinic on 02/22/2017 at 8:30 a.m. for followup. Case was discussed with surgical services and in agreement for plans. Thank you for this consultation. Will continue to follow patient as an outpatient. /[id number]/MODL MTDD
== END 2017-02-20 15:59 | disposition home or self-care (01) | DRG 339 ==
LOC: OBSVTOIN 17:27 → F3E 23:34
PROVIDERS: ADMIT Surgery; ATTEND Surgery
PROC: 0DTJ0ZZ Resection of Appendix, Open Approach (ICD-10-PCS; principal; 2017-02-13 19:30)
DX: K35.2 Acute appendicitis with generalized peritonitis (principal); K50.90 Crohn's disease, unspecified, without complications; I88.0 Nonspecific mesenteric lymphadenitis; N13.30 Unspecified hydronephrosis; N13.4 Hydroureter
CPT/HCPCS: 82947-QW; 96365; J1100; J1170; J1335; J1650; J1885; J2250; J2405; J2704; J3010; Q9967